=== PATIENT | male | born 1975 | race Caucasian/White ===

== ENCOUNTER → 2019-05-20 15:41 | Outpatient (CLI) | payer OTHER, SELFPAY ==
[2019-05-20 16:36] LABS: Alanine Aminotransferase 129 IU/L (<50); Albumin 4.8 g/dL (3.5-5.0); Albumin Globulin Ratio 1.6 (1.0-2.8); Alkaline Phosphatase 88 U/L (38-126); Aspartate Aminotransferase 80 IU/L (17-59); BUN Creatinine Ratio 21.3 (6-22); Blood Urea Nitrogen 17 mg/dL (9-20); Calcium 9.5 mg/dL (8.4-10.2); Carbon Dioxide 31 mmol/L (22-32); Chloride 101 mmol/L (98-107); Cholesterol 194 mg/dL (140-199); Estimated Glomerular Filt Rate > 60.0 mL/min (>60); Glucose 137 mg/dL (70-100); HDL Cholesterol 45 mg/dL (40-60); HEMOLYSIS 21 (0-50); LDL Cholesterol Calculated 114 mg/dL (<100); Potassium 4.6 mmol/L (3.4-5.1); Sodium 141 mmol/L (137-145); Total Protein 7.8 g/dL (6.3-8.2); Triglycerides 174 mg/dL (35-150)
[2019-05-20 17:00] LABS: Creatinine Urine Random 172.5 mg/dL
[2019-05-20 17:07] LABS: Thyroid Stimulating Hormone 0.65 uIU/mL (0.47-4.68)
[2019-05-20 17:22] LABS: Microalbumi Creatinin Ratio Ur 249.2 ug/mg CR (<30)
== END ==
PROVIDERS: PCP Physician Assistant; Visit Provider Physician Assistant
DX: E66.01 Morbid (severe) obesity due to excess calories (principal); I10 Essential (primary) hypertension
CPT/HCPCS: 36415; 80053; 80061; 82043; 82570; 84443

== ENCOUNTER → 2019-07-29 16:20 | Outpatient (CLI) | payer OTHER, SELFPAY ==
[2019-07-29 17:04] LABS: Alanine Aminotransferase 135 IU/L (<50); Albumin 4.5 g/dL (3.5-5.0); Albumin Globulin Ratio 1.3 (1.0-2.8); Alkaline Phosphatase 72 U/L (38-126); Aspartate Aminotransferase 81 IU/L (17-59); BUN Creatinine Ratio 27.1 (6-22); Bilirubin Total 0.5 mg/dL (0.2-1.3); Blood Urea Nitrogen 19 mg/dL (9-20); Calcium 9.2 mg/dL (8.4-10.2); Carbon Dioxide 28 mmol/L (22-32); Chloride 102 mmol/L (98-107); Estimated Glomerular Filt Rate > 60.0 mL/min (>60); Globulin 3.5 g/dL (1.7-4.1); Glucose 132 mg/dL (70-100); HEMOLYSIS < 15 (0-50); Potassium 3.2 mmol/L (3.4-5.1); Sodium 139 mmol/L (137-145)
[2019-07-29 17:25] LABS: Creatinine Urine Random 192.5 mg/dL
[2019-07-29 17:57] LABS: Microalbumi Creatinin Ratio Ur 172.9 ug/mg CR (<30); Microalbumin Urine Random 33.3 mg/dL (0-1.6)
== END ==
PROVIDERS: PCP Physician Assistant; Visit Provider Physician Assistant
DX: I10 Essential (primary) hypertension (principal); R74.8 Abnormal levels of other serum enzymes; R80.9 Proteinuria, unspecified; R73.01 Impaired fasting glucose
CPT/HCPCS: 36415; 80053; 82043; 82570; 83036

== ENCOUNTER → 2021-02-26 12:10 | Outpatient (CLI) | payer OTHER, SELFPAY ==
[2021-02-26 14:02] LABS: Add Manual Diff / Slide Review NO; Basophils Absolute Auto 100 /uL (0-100); Basophils Percent Auto 1.1 % (0-2); Eosinophils Absolute Auto 200 /uL (0-450); Eosinophils Percent Auto 2.5 % (2-4); Hematocrit 46.4 % (41-53); Hemoglobin 16.4 g/dL (13.5-17.5); Lymphocytes Absolute Auto 1800 /uL (1100-4500); Lymphocytes Percent Auto 23.5 % (25-40); Mean Corpuscular HGB Conc 35.3 % (30-36); Mean Corpuscular Hemoglobin 31.1 PG (26-34); Mean Corpuscular Volume 88.2 fL (80-100); Monocytes Absolute Auto 700 /uL (0-900); Monocytes Percent Auto 9.5 % (3-14); Neutrophils Absolute Auto 5000 /uL (1500-7000); Neutrophils Percent Auto 63.4 % (50-75); Platelet Count 247 X10^3/uL (150-400); Red Blood Cell Count 5.26 X10^6/uL (4.5-5.9); Red Cell Distribution Width 13.2 % (11.6-14.8); White Blood Cell Count 7.8 X10^3/uL (4.5-11.0)
[2021-02-26 14:28] LABS: Alanine Aminotransferase 133 IU/L (<50); Albumin 4.4 g/dL (3.5-5.0); Albumin Globulin Ratio 1.5 (1.0-2.8); Alkaline Phosphatase 85 U/L (38-126); Aspartate Aminotransferase 93 IU/L (17-59); BUN Creatinine Ratio 18.7 (6-22); Bilirubin Total 0.9 mg/dL (0.2-1.3); Blood Urea Nitrogen 14 mg/dL (9-20); Calcium 9.5 mg/dL (8.4-10.2); Carbon Dioxide 29 mmol/L (22-32); Chloride 101 mmol/L (98-107); Cholesterol 183 mg/dL (140-199); Estimated Glomerular Filt Rate > 60.0 mL/min (>60); Glucose 188 mg/dL (70-100); HDL Cholesterol 41 mg/dL (40-60); HEMOLYSIS < 15 (0-50); LDL Cholesterol Calculated 112 mg/dL (<100); Potassium 3.7 mmol/L (3.4-5.1); Sodium 138 mmol/L (137-145); Total Protein 7.4 g/dL (6.3-8.2); Triglycerides 151 mg/dL (35-150); Uric Acid 5.9 mg/dL (3.5-8.5)
[2021-02-26 14:33] LABS: NT-proBNP (BNP-Adult 18+) 193 pg/mL (<125)
== END ==
PROVIDERS: PCP Physician Assistant; Referring Provider Naturopath; Visit Provider Naturopath
DX: M79.675 Pain in left toe(s) (principal); Z13.6 Encounter for screening for cardiovascular disorders
CPT/HCPCS: 36415; 80053; 80061; 83880; 84550; 85025

== ENCOUNTER → 2021-05-30 12:07 | Outpatient (CLI) | payer OTHER, SELFPAY ==
[2021-05-30 16:11] LABS: COVID19 -Nasal RAPID Negative (Negative)
== END ==
PROVIDERS: PCP Family Medicine; Referring Provider Physician Assistant; Visit Provider Physician Assistant
DX: Z01.812 Encounter for preprocedural laboratory examination (principal); Z20.822 Contact with and (suspected) exposure to COVID-19
CPT/HCPCS: 87635

== ENCOUNTER → 2021-05-31 14:46 | Outpatient (CLI) | payer OTHER, SELFPAY ==
--- NOTE | 2021-05-31 14:47 | DI.ECHO.S_ITS ---
[facility] +---------+ : : [address] : : : : [id number] : : : : Phone: [phone]+ Echocardiogram Report + + :Name: ALICE GOULD Study Date: 05/31/2021 Height: 74 in : :[facility] ReadingLocation: Weight: 342 lb : : Gender: Male BSA: 2.7 m2 : :: 1975 Age: 45 yrs BP: 165/110 mmHg: :Reason For Study: HYPERTENSION : :Ordering Physician: SELENA, : :ANIBAL Performed By: Gavi Marquez : :Referring: ANIBAL WALTERS : + + Interpretation Summary The ejection fraction is estimated to be 60-65%. The right ventricle is normal in size and function. A patent foramen ovale is suspected. There is no significant valvular heart disease. Procedure: A two-dimensional transthoracic echocardiogram with color flow and Doppler was performed. The study quality was technically adequate. There is no prior echocardiogram noted for this patient. The patient was in sinus rhythm with heart rates between 59-66 bpm during the exam. Left Ventricle: The left ventricle is normal in size. There is moderate concentric left ventricular hypertrophy. The ejection fraction is estimated to be 60-65%. Left ventricular wall motion is normal. Right Ventricle: The right ventricle is normal in size and function. Atria: The left atrial size is normal. Right atrial size is normal. A patent foramen ovale is suspected. Mitral Valve: The mitral valve is normal in structure and function. There is trace mitral regurgitation. Aortic Valve: The aortic valve is trileaflet. The aortic valve opens well. There is no aortic valve stenosis. No aortic regurgitation is present. Tricuspid Valve: The tricuspid valve is normal in structure and function. There is trace tricuspid regurgitation. Pulmonary artery pressures cannot be estimated because of the lack of a measurable TR jet velocity. Pulmonic Valve: The pulmonic valve is not well visualized. There is no pulmonic valvular regurgitation. Great Vessels: The aortic root is normal size. The ascending aorta is mildly enlarged. The inferior vena cava was not well visualized. Pericardium/ Pleura There is no pericardial effusion. There is no pleural effusion. MMode/2D Measurements & Calculations LVIDd: 4.9 cm LVOT diam: 2.3 cm LVIDs: 3.3 cm Ao root diam: 3.6 cm FS: 33.4 % asc Aorta Diam: 3.9 cm IVSd: 1.6 cm Ao Arch Diam (Prox Trans): 3.3 cm LVPWd: 1.3 cm LV aguilar. diameter/BSA (cm/m^2): 1.8 LV sys. diameter/BSA (cm/m^2): 1.2 LA A2 area: 23.6 cm2 RA long axis: 5.5 cm LA A4 area: 15.9 cm2 RA area: 14.3 cm2 LA length (vol): 5.2 cm RA vol: 31.7 ml LA vol: 61.0 ml RA : 11.6 ml/m2 LA vol index: 22.3 ml/m2 RVD1 (basal): 3.6 cm TAPSE: 1.9 cm Doppler Measurements & Calculations Ao V2 max: 118.2 cm/sec LVOT Max Jamil: 90.8 cm/sec Ao V2 mean: 82.5 cm/sec LV V1 max P.3 mmHg Ao max P.6 mmHg LV V1 VTI: 18.6 cm Ao mean P.0 mmHg SUSANNE(I,D): 3.5 cm2 Ao V2 VTI: 22.0 cm SUSANNE(V,D): 3.2 cm2 sev ratio: 0.85 SUSANNE indexed to BSA (cm^2/m^2): 1.3 MV E max jamil: 54.8 cm/sec PA V2 max: 93.0 cm/sec MV A max jamil: 79.9 cm/sec PA V2 mean: 63.3 cm/sec MV E/A: 0.69 PA mean P.7 mmHg Med Peak E' Jamil: 5.1 cm/sec PA pr(Accel): 22.5 mmHg E/E' med: 10.7 Lat Peak E' Jamil: 6.5 cm/sec E/E' lat: 8.4 E/e' average: 9.6 MV dec time: 0.27 sec SV(LVOT): 77.5 ml Reading Physician:07:38 PM
--- NOTE | 2021-06-02 12:51 | DI.NM.S_ITS ---
DATE OF SERVICE: PROCEDURE: Pharmacological perfusion study. DATE OF STUDY: June 01, 2021. INDICATIONS: Abnormal EKG, hypertension. RADIOPHARMACEUTICAL: 25.8 millicurie technetium-99m Myoview IV was injected at rest and 27.4 millicurie technetium-99m Myoview IV was injected at stress. CARDIAC STRESS: Initially, the patient attempted walking on the treadmill. He walked on Juni protocol for 4 minutes and achieved 7 METs of workload. His baseline blood pressure was 160/105. With exercise, blood pressure went up to 246/120 mmHg, hence it was discontinued. The patient was given intravenous Lexiscan as per protocol. During exercise, functional aerobic impairment positive 59 percent. Baseline rhythm was sinus with QS complexes in V1 to V2. During Lexiscan, there were some nonspecific ST changes with less than [address] depression in inferolateral leads. The patient achieved 93 percent of target heart rate. No chest pain or anginal symptoms. RAW DATA: There is increased subdiaphragmatic activity. The patient's weight is 348 pounds. GATED STUDY: Stress LV ejection fraction 66 percent without any obvious wall motion abnormalities. Resting end-diastolic volume 164 mL. TID ratio 1.02, which is within normal limits. Lung/heart ratio 0.30, which is within normal limits. MYOCARDIAL PERFUSION SCAN: Stress supine and resting supine images revealed moderate-size, moderately decreased perfusion of inferior wall which got completely resolved during prone images suggestive of diaphragmatic tissue attenuation artifact. Prone images revealed normal myocardial perfusion. CONCLUSION: This is a normal myocardial perfusion study with evidence of diaphragmatic tissue attenuation artifact which got resolved during stress prone images. Hypertensive blood pressure response. Baseline blood pressure 160/105. With exercise went up to 246/120 mmHg. No anginal symptoms. Nonspecific EKG changes. No significant arrhythmias. As far as perfusion scan is concerned, this is a low-risk myocardial perfusion scan. Consider aggressive medical management including blood pressure management. Agustin Vasquez - BESS/lolita/carie doc#: [id number]/job#: [id number] dd: 06/01/2021 17:40:00 dt: 06/01/2021 18:25:00 DICTATING MD/COPIES TO: Sangeetha Tirado MD COPIES MNE: GILDARDO;
== END ==
PROVIDERS: PCP Physician Assistant; Referring Provider Family Medicine; Visit Provider Family Medicine
DX: R94.31 Abnormal electrocardiogram [ECG] [EKG] (principal); I77.89 Other specified disorders of arteries and arterioles; I10 Essential (primary) hypertension; I45.9 Conduction disorder, unspecified; E66.01 Morbid (severe) obesity due to excess calories; R73.01 Impaired fasting glucose; Z68.42 Body mass index [BMI] 45.0-49.9, adult
CPT/HCPCS: 78452; 93017; 93306; A9502; J2785

== ENCOUNTER → 2022-08-27 08:28 | Outpatient (CLI) | payer OTHER, SELFPAY ==
[2022-08-27 10:11] LABS: Hemoglobin A1C% w Est Avg Glu 12.6 % (4.0-6.0)
[2022-08-27 10:12] LABS: Add Manual Diff / Slide Review NO; Basophils Absolute Auto 100 /uL (0-100); Basophils Percent Auto 0.8 % (0-2); Eosinophils Absolute Auto 100 /uL (0-450); Eosinophils Percent Auto 2.3 % (2-4); Hematocrit 48.1 % (41-53); Hemoglobin 17.3 g/dL (13.5-17.5); Lymphocytes Absolute Auto 1400 /uL (1100-4500); Lymphocytes Percent Auto 21.4 % (25-40); Mean Corpuscular Hemoglobin 31.6 PG (26-34); Mean Corpuscular Volume 87.7 fL (80-100); Monocytes Absolute Auto 500 /uL (0-900); Monocytes Percent Auto 7.2 % (3-14); Neutrophils Absolute Auto 4500 /uL (1500-7000); Neutrophils Percent Auto 68.3 % (50-75); Platelet Count 221 X10^3/uL (150-400); Red Blood Cell Count 5.49 X10^6/uL (4.5-5.9); White Blood Cell Count 6.6 X10^3/uL (4.5-11.0)
[2022-08-27 10:16] LABS: Alanine Aminotransferase 107 IU/L (<50); Albumin 4.2 g/dL (3.5-5.0); Albumin Globulin Ratio 1.4 (1.0-2.8); Alkaline Phosphatase 92 U/L (38-126); Aspartate Aminotransferase 68 IU/L (17-59); BUN Creatinine Ratio 25.4 (6-22); Blood Urea Nitrogen 17 mg/dL (9-20); Calcium 8.7 mg/dL (8.4-10.2); Carbon Dioxide 28 mmol/L (22-32); Chloride 98 mmol/L (98-107); Cholesterol 210 mg/dL (140-199); Estimated Glomerular Filt Rate > 60 mL/min (>60); Globulin 2.9 g/dL (1.7-4.1); Glucose 355 mg/dL (70-100); HDL Cholesterol 43 mg/dL (40-60); HEMOLYSIS < 15 (0-50); LDL Cholesterol Calculated 113 mg/dL (<100); Potassium 4.2 mmol/L (3.4-5.1); Sodium 136 mmol/L (137-145); Total Protein 7.1 g/dL (6.3-8.2); Triglycerides 268 mg/dL (35-150)
[2022-08-27 10:46] LABS: TSH w/ Reflex to FT4 0.49 uIU/mL (0.47-4.68)
[2022-08-27 11:05] LABS: Creatinine Urine Random 109.6 mg/dL
[2022-08-27 11:29] LABS: Microalbumi Creatinin Ratio Ur 1779.1 ug/mg CR (<30)
== END ==
PROVIDERS: PCP Family Medicine; Referring Provider Family Medicine; Visit Provider Family Medicine
DX: E66.01 Morbid (severe) obesity due to excess calories (principal); G47.33 Obstructive sleep apnea (adult) (pediatric); I10 Essential (primary) hypertension; R73.01 Impaired fasting glucose; R74.8 Abnormal levels of other serum enzymes; Z68.42 Body mass index [BMI] 45.0-49.9, adult
CPT/HCPCS: 36415; 80053; 80061; 82043; 82570; 83036; 84443; 85025

== ENCOUNTER → 2022-10-21 09:51 | Outpatient (CLI) | payer OTHER, SELFPAY ==
[2022-10-21 10:47] LABS: Alanine Aminotransferase 94 IU/L (<50); Albumin 4.6 g/dL (3.5-5.0); Albumin Globulin Ratio 1.2 (1.0-2.8); Alkaline Phosphatase 74 U/L (38-126); Aspartate Aminotransferase 61 IU/L (17-59); BUN Creatinine Ratio 23.9 (6-22); Bilirubin Total 0.9 mg/dL (0.2-1.3); Blood Urea Nitrogen 17 mg/dL (9-20); Calcium 9.3 mg/dL (8.4-10.2); Carbon Dioxide 29 mmol/L (22-32); Chloride 103 mmol/L (98-107); Estimated Glomerular Filt Rate > 60 mL/min (>60); Globulin 3.9 g/dL (1.7-4.1); Glucose 171 mg/dL (70-100); HEMOLYSIS < 15 (0-50); Potassium 3.7 mmol/L (3.4-5.1); Sodium 140 mmol/L (137-145); Total Protein 8.5 g/dL (6.3-8.2)
[2022-10-22 06:08] LABS: x Labcorp Estim. Avg Glu (eAG) 209 mg/dL (.); x Labcorp Hemoglobin A1c 8.9 % (4.8-5.6)
[2022-10-28 18:21] LABS: Aldosterone/Renin Activity Rat 7.3 (0.0-30.0); Plama Renin, LC/MS/MS 0.656 ng/mL/hr (0.167-5.380)
== END ==
PROVIDERS: PCP Family Medicine; Referring Provider Family Medicine; Visit Provider Family Medicine
DX: I10 Essential (primary) hypertension (principal); R80.9 Proteinuria, unspecified
CPT/HCPCS: 36415; 80053; 82088; 83036; 84244

== ENCOUNTER → 2022-11-04 13:41 | Outpatient (CLI) | payer OTHER, SELFPAY ==
--- NOTE | 2022-12-01 14:01 | DIAB.MNT ---
Initial Diabetes Medical Nutrition Therapy Assessment Name: Agustin Vasquez Date: 11/04/22 Time: 210-315p Dx: Type II Diabetes Provider: Lucy Velez presents for initial DM visit. Newly dx with T2Dm with HgA1c of 12.6% in 08/2022 and 8.9% in 10/2022. Endorses FH of DM with maternal grandfather, possibly father. Reports excessive hunger and thirst when diagnosed. Thirst improved. Endorses weight loss since last PCP visit from lifestyle changes. States he has been trying to avoid evening eating. Reports prior to dx he would eat everything Using smaller plate size. Limits self to a couple bites of ice cream. Trying to balance Na for HTN management and DM diet. Reduced energy drink intake to one per day. Milk intake reduced from 1/2 gallon per day to 1 qt. 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 Wants to start walking with son and dog. Self-Monitoring Blood Glucose: Checking FBG and pre dinner, range from 160-180mg/dl per report. No meter/log book today. Diabetes Medications: 25mg Jardiance 1000mg Metformin BID Ozempic rx (not taking yet) Pertinent Labs: hgA1c: 8.9% (10/2022) 12.6% (08/2022) Past Medical History: (Last Updated 10/21/22 @ 09:27 by Jose Luis Ayala MD) Diabetes mellitus Elevated liver enzymes Impaired fasting glucose Microalbuminuria PFO (patent foramen ovale) Resistant hypertension Uncontrolled diabetes mellitus Nutrition Rx: Carbohydrates: Meal: 45-60g snack: 15-30g Nutrition Diagnosis: - Predicted excessive CHO intake r/t nutrition knowledge deficit aeb new dx, pt report, and diet recall - Physical inactivity r/t stage of change preparation aeb pt report Intervention: This participant was very receptive. Provided appropriate educational handouts. Discussed the following topics: Completed intake assessment. Discussed barriers to care. Brief pathophysiology of T2DM HgA1c, its correlation to blood glucose numbers, and rationale for goal Importance of self-monitoring, how often, and when to check. Suggested checking at different times to evaluate meals Plate Method, impact of macronutrients on blood sugar, meal timing, carbohydrate counting, pairing macronutrients and spreading out carbohydrates for better blood glucose management Recommended servings for carbohydrates at meals and snacks Heart health nutrition Brainstormed appropriate meal plan based on food preferences Role of physical activity and following provider guidelines for safety Created SMART goals for patient self-care and success. Goals: Start walks 2-3 x per week Check BG 1-2 x per day and keep log book Spread CHO intake out as discussed Follow-up: CHARLENE TAVERA follow-up in 4-6 weeks Lesly Nicolas RDN, LIANG Certified Diabetes Care and [employer] Secretary P: [phone] Thank you for this referral
== END ==
PROVIDERS: Absent Provider Family Medicine; Family Provider Family Medicine; PCP Family Medicine; Referring Provider Family Medicine; Visit Provider Family Medicine
DX: E11.9 Type 2 diabetes mellitus without complications (principal); I10 Essential (primary) hypertension; Z79.84 Long term (current) use of oral hypoglycemic drugs; Z71.3 Dietary counseling and surveillance
CPT/HCPCS: 97802

== ENCOUNTER 2022-12-30 06:48 | Day surgery (SDC) | payer OTHER, SELFPAY ==
[2022-12-30] VITALS (7 sets, daily range): BP systolic 93–147; BP diastolic 50–92; PULSE 75–88; RESP 12–20; TEMP 36.1–36.7; O2SAT 91–96; BMI 40.1
--- NOTE | 2022-12-30 | PATH_ITS ---
[facility] Accession Number: [id number] No. of containers..05 Tissue . 01 Material submitted: . PART A: cecum - CECAL POLYP (LARGE) PART B: cecum - CECAL POLYP (SMALL) PART C: colon - TRANSVERSE POLYP (LARGE) PART D: splenic flexure - SPLENIC FLEXURE PART E: colon - DESCENDING POLYP . 01 Diagnosis: A. Cecal Polyp: Sessile serrated adenoma. . B. Cecal Polyp: Colonic mucosa with no diagnostic abnormality, consistent with polypoid redundancy. Negative for serrated lesion, dysplasia or malignancy. . C. Transverse Colon Polyp: Sessile serrated adenoma. . D. Splenic Flexure Polyp: Tubular adenoma. . E. Descending Colon Polyp: Hyperplastic polyp. [facility] 01/05/2023 1259 Local . 01 Electronically signed: . Ian Leonard MD, PhD, Pathologist NPI- [id number] . 01 Gross description: . Part A: CECAL POLYP (LARGE): Received in formalin are 3 fragment(s) of robison, soft tissue measuring 0.6 x 0.5 x 0.2 cm to 0.8 x 0.3 x 0.3 cm submitted entirely in 1 cassette(s) Part B: CECAL POLYP (SMALL): Received in formalin is 1 fragment(s) of robison, soft tissue measuring 0.3 x 0.3 x 0.3 cm submitted entirely in 1 cassette(s) Part C: TRANSVERSE POLYP (LARGE): Received in formalin are 2 fragment(s) of robison, soft tissue measuring 0.6 x 0.4 x 0.3 cm to 0.8 x 0.7 x 0.6 cm submitted entirely in 1 cassette(s) Part D: SPLENIC FLEXURE: Received in formalin is 1 fragment(s) of robison, soft tissue measuring 0.3 x 0.3 x 0.3 cm submitted entirely in 1 cassette(s) Part E: DESCENDING POLYP: Received in formalin is 1 fragment(s) of robison, soft tissue measuring 0.3 x 0.2 x 0.2 cm submitted entirely in 1 cassette(s) /EULALIA 01/03/2023 2315 Local . 01 Pathologist provided ICD-10: D12.0, D12.3 . 01 CPT . 162865, 069427, 404219, 631720, 253570 Specimen Comment: A courtesy copy of this report has been sent to [facility] Pathology Performed at: 01 [facility] [address] [facility], [place], [place] [id number] MD Gutierrez Mcgill MD Phone: [phone]
[2022-12-30] MEDS: LACTATED RINGERS 1,000 ML 100 ML IV (07:19)
--- NOTE | 2022-12-30 07:43 | PM.HP.1 ---
History of Present Illness History of Present Illness Date Patient Seen: 12/30/22 Time Patient Seen: 07:43 Chief complaint: Colonoscopy Narrative: 47-year-old male presents today for his 1st screening colonoscopy. He has no family history of colon cancer. He has not noticed any concerning symptoms such as bleeding or changes in bowel habits. [facility] Medical History (Updated 10/21/22 @ 15:00 by Jose Luis Ayala MD) Diabetes mellitus Elevated liver enzymes Impaired fasting glucose Microalbuminuria PFO (patent foramen ovale) Resistant hypertension Uncontrolled diabetes mellitus Surgical History (Updated 06/24/19 @ 20:54 by Pam Monroy) Anesthesia History of vasectomy Family History (Updated 06/24/19 @ 20:56 by Pam Monroy) Grandmother Cancer Grandfather History of heart disease Hypertension Stroke Social History household members: spouse and family Smoking Status: Never smoker second hand exposure: Yes (my mom smoked when I was a child. ) alcohol intake: never substance use type: does not use Meds Home Medications and Allergies Home Medications Medication Instructions Recorded Confirmed Type metoprolol succinate 50 mg 50 mg PO DAILY #90 tabs 08/26/22 12/30/22 Rx tablet,extended release 24 hr empagliflozin 25 mg tablet 25 mg PO DAILY #90 tabs 08/29/22 12/30/22 Rx (Jardiance) blood-glucose meter #1 ea 09/01/22 10/21/22 Rx lancet with blood glucose test #300 ea 09/01/22 10/21/22 Rx strips and pen needles combo pack amlodipine 10 mg tablet 10 mg PO DAILY #90 tabs 10/21/22 10/21/22 Rx atorvastatin 40 mg tablet (Lipitor) 40 mg PO QPM #90 tabs 10/21/22 12/30/22 Rx chlorthalidone 25 mg tablet 25 mg PO DAILY #90 tabs 10/21/22 12/30/22 Rx lisinopril 40 mg tablet 40 mg PO DAILY #90 tabs 10/21/22 12/30/22 Rx metformin 1,000 mg tablet See Rx Instructions PO BIDWMEAL 10/21/22 12/30/22 Rx #180 tabs semaglutide 0.25 mg or 0.5 mg (2 0.25 mg (0.4 mL) SUBCUT QWEEK #3 mL 10/21/22 12/30/22 Rx mg/3 mL) subcutaneous pen injector (Ozempic) Allergies Allergy/AdvReac Type Severity Reaction Status Date / Time No Known Drug Allergies Allergy Verified 08/30/22 14:29 Exam Vital Signs (past 8 hours): - 12/30/22 07:06 Temperature 98.1 F Pulse Rate 80 Respiratory Rate 18 Blood Pressure 147/92 H Pulse Oximetry 95 Const General: cooperative, healthy appearing and comfortable Nutritional Appearance: obese (bmi 40) Orientation: alert, awake and oriented x3 HENMT Head: normal to inspection Eyes General: appearance normal, both eyes and all related structures Resp Effort & Inspection: normal respiratory effort and able to speak in complete sentences Cardio Pulses: radial pulses present GI Palpation: soft and No tender Assessment & Plan Assessment & Plan narrative: Presents today for screening colonoscopy I discussed the risks benefits and alternatives including but not limited to perforation of the colon and an incomplete exam he fully understands these risks and would like to proceed.
--- NOTE | 2022-12-30 09:49 | P.OP.COLON_ITS ---
Operative Date/Time/Diagnoses Date of procedure: 12/30/22 Pre-op diagnosis: Screening for colon cancer, 1st screening no family history Post-op diagnosis: same Procedure & Clinicians Study performed: Colonoscopy and biopsy Same procedure as scheduled: Yes Indications: Screening for colon cancer this is his 1st screening he has no family history of colon cancer and no concerning symptoms. Surgeon: Jenelle Ramirez Procedure Notes Procedure in detail: Patient was taken to the endoscopy suite and placed in the left lateral decubitus position. A time-out was performed. With the help of anesthesiologist conscious sedation was induced and maintained for the duration of the procedure. A digital rectal exam was performed and there were no masses or strictures. The scope was then advanced into the anal canal and through to the cecum. Some abdominal pressure was required. Photograph of the appendiceal orifice was obtained. The bowel prep was good [place] bowel prep score of 2. There was a very small cecal polyp seen by the appendiceal orifice which was rem geo with the biopsy forceps. There was a larger cecal polyp that required a snare to remove. It might have been 9 mm to 1 cm in size. Further withdrawal revealed a very large polyp in the transverse colon. This was a sessile polyp and was on the far side of a colon fold, it also was right beyond the splenic flexure making positioning the colonoscope for the purpose of removing it somewhat difficult. I had to switch out the snare to the larger size which was a 2.5 cm sized snare and had to remove the polyp in 2 bites in order to fit it through the suctioned of the colonoscope. I believe this polyp was at least 2 cm in size, but removed in its entirety. I did use electrocautery on the snare to remove the 2 halves of that polyp. Further withdrawal revealed a small polyp at the splenic flexure which was removed with biopsy forceps as well as a small polyp in the descending colon again removed with 2 bites of a forceps. The scope was then retroflexed and hemorrhoidal piles appeared normal. Of note in addition there were a large number of sigmoid diverticula that were seen and photographed during the colonoscopy. Patient tolerated the procedure well and went in good condition to the postoperative care unit. Total withdrawal time including biopsies was 40 minutes. Findings: divertiulosis and polyp(s) Specimen(s): other (1. Cecal polyp(large) 2. Cecal polyps(small) 3. Transverse polyp very large 4. Splenic flexure polyp small 5. Descending colon polyp small) Complications: none Post-procedure Recommendations: Colonoscopy in 3 years
== END 2022-12-30 09:25 | disposition home or self-care (01) ==
PROVIDERS: Family Provider Family Medicine; PCP Family Medicine; Referring Provider Surgery; Visit Provider Surgery
PROC: 0DJD8ZZ Inspection of Lower Intestinal Tract, Via Natural or Artificial Opening Endoscopic (ICD-10-PCS; CPT 45378; principal; 2022-12-30 07:45)
DX: Z12.11 Encounter for screening for malignant neoplasm of colon (principal); K57.30 Diverticulosis of large intestine without perforation or abscess without bleeding; D12.0 Benign neoplasm of cecum; D12.3 Benign neoplasm of transverse colon; D12.4 Benign neoplasm of descending colon
CPT/HCPCS: 45385; 45380; 82962; J2704

== ENCOUNTER → 2023-02-01 08:36 | Outpatient (CLI) | payer OTHER, SELFPAY ==
[2023-02-01 10:44] LABS: Creatinine Urine Random 90.2 mg/dL
[2023-02-01 10:47] LABS: Microalbumi Creatinin Ratio Ur 127.4 ug/mg CR (<30); Microalbumin Urine Random 11.5 mg/dL (0-1.6)
[2023-02-02 07:43] LABS: x Labcorp Estim. Avg Glu (eAG) 163 mg/dL (.); x Labcorp Hemoglobin A1c 7.3 % (4.8-5.6)
== END ==
PROVIDERS: Family Provider Family Medicine; PCP Family Medicine; Referring Provider Family Medicine; Visit Provider Family Medicine
DX: I10 Essential (primary) hypertension (principal); R80.9 Proteinuria, unspecified
CPT/HCPCS: 36415; 82043; 82570; 83036

== ENCOUNTER 2024-03-22 18:42 | Emergency (ER) | payer OTHER, SELFPAY ==
[2024-03-22 18:54] VITALS: BP 154/87; PULSE 85; RESP 16; TEMP 36.6; O2SAT 97; BMI 41.3
--- NOTE | 2024-03-22 18:58 | DI.RAD.S_ITS ---
PROCEDURE: XR SHOULDER RT MIN 2V INDICATIONS: fall, heard a pop, thinks tore bicep TECHNIQUE: 3 views of the shoulder were acquired. COMPARISON: None. FINDINGS: Bones: Mild background degenerative changes. No acute displaced fracture. Small bone fragment seen superior to the humerus. Soft tissues: Possible calcific tendinopathy. IMPRESSION: Small densities seen superior to the humerus probably represents calcific tendinopathy. No definite acute displaced fracture or dislocation. If there is high concern for further derangement, consider MRI evaluation. Dictated by: Jack Luna M.D. on 03/22/2024 at 19:42 Approved by: Jack Luna M.D. on 03/22/2024 at 19:43
--- NOTE | 2024-03-22 23:04 | ED_ITS ---
HPI - Extremity Injury (Upper) General Chief Complaint: Extremity Injury, Upper Stated Complaint: rt should and bicep injury Time Seen by Provider: 03/22/24 23:03 Source: patient, RN notes reviewed and old records reviewed Mode of arrival: Ambulatory Limitations: no limitations History of Present Illness HPI narrative: 48-year-old male history of hypertension dyslipidemia, diabetes who is presents with concern for right shoulder and possible biceps tendon injury. Patient was at work today fell backwards leaning with his arm outstretched onto his hand but then shoulder was rolled forward and externally rotated and patient felt pop at the top of the shoulder states that the muscle of the biceps looks larger at the base of his arm. Patient states had a similar injury on the opposite side in the left many years ago feels very similar. He states he is little bit weaker with flexion of the arm. Denies any other injuries. States there is a little bit of discomfort in the trapezius and behind the shoulder. Patient denies any numbness tingling or weakness otherwise. States he never has a left shoulder evaluated. Patient states this did occur at work. He has filled out L and I paperwork. Denies any drug allergies. No tobacco. Related Data Previous Rx's Medication Instructions Recorded blood-glucose meter #1 ea 09/01/22 lancet with blood glucose test #300 ea 09/01/22 strips and pen needles combo pack psyllium husk (aspartame) 3.4 5.8 g PO BID #660 grams 12/30/22 gram/5.8 gram oral powder (Fiber (with aspartame)) amlodipine 10 mg tablet 10 mg PO DAILY #90 tabs 01/26/24 atorvastatin 40 mg tablet (Lipitor) 40 mg PO QPM #90 tabs 01/26/24 chlorthalidone 50 mg tablet 50 mg PO DAILY #90 tabs 01/26/24 empagliflozin 25 mg tablet 25 mg PO DAILY #90 tabs 01/26/24 (Jardiance) lisinopril 40 mg tablet 40 mg PO DAILY #90 tabs 01/26/24 metformin 1,000 mg tablet See Rx Instructions PO BIDWMEAL 01/26/24 #180 tabs metoprolol succinate 50 mg 50 mg PO DAILY #90 tabs 01/26/24 tablet,extended release 24 hr Allergies Allergy/AdvReac Type Severity Reaction Status Date / Time No Known Drug Allergies Allergy Verified 01/26/24 08:25 Review of Systems Review of Systems ROS Unobtainable: All systems reviewed & are unremarkable except as noted in HPI and below Patient History Medical History Resistant hypertension Microalbuminuria Diabetes mellitus Uncontrolled diabetes mellitus PFO (patent foramen ovale) Elevated liver enzymes Impaired fasting glucose Surgical History Anesthesia History of vasectomy Family History Grandmother Cancer Grandfather History of heart disease Hypertension Stroke Social History household members: spouse and family Smoking Status: Never smoker second hand exposure: Yes (my mom smoked when I was a child. ) alcohol intake: never substance use type: does not use Smoking Status: Never smoker Exam Narrative Exam Narrative: GENERAL: Alert and oriented x three, male in mild distress HEENT: Head normocephalic, atraumatic, EOMI, pupils reactive, face symmetric, moist mucous membranes NECK: Supple, full range of motion CARDIOVASCULAR: Regular rate and rhythm without murmurs, rubs or gallops. RESPIRATORY: Breath sounds equal bilaterally, no wheezes rales or rhonchi. EXTREMITIES: Normal range of motion, no clubbing or edema. Neurovascularly intact, patient has tenderness over the biceps tendon groove. 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 He has some mild tenderness at the AC joint but majority has a discomfort that the biceps tendon groove. 2+ radial pulses bilaterally power system electrical engineer are equal bilaterally. NEUROLOGICAL: Cranial nerves II through XII grossly intact. Moving all extremities SKIN: Warm, dry, no petechiae, no rashes or lesions. Initial Vital Signs Initial Vital Signs: Vital Signs Temperature 97.8 F 03/22/24 18:54 Pulse Rate 85 03/22/24 18:54 Respiratory Rate 16 03/22/24 18:54 Blood Pressure 154/87 H 03/22/24 18:54 Pulse Oximetry 97 03/22/24 18:54 Oxygen Delivery Method Room Air 03/22/24 18:54 Course Orders Ordered: ED Orders 03/22/24 18:58 XR shoulder RT min 2V Stat Vital Signs Vital signs: Vital Signs - 8 hr 03/22/24 18:54 Temperature 97.8 F Pulse Rate 85 Respiratory Rate 16 Blood Pressure 154/87 H Pulse Oximetry 97 Oxygen Delivery Method Room Air MDM - Extremity Injury (Upper) Imaging Data Extremity x-ray #1: Radiologist's Impression: [address] [address] XRay Report Signed Patient: Agustin Vasquez MR#: [id number] : 1975 Acct:[id number] Age/Sex: 48 / M Date of Service: 03/22/24 Loc: ED Accession Number: [id number] Procedure: XR shoulder RT min 2V Ordering Provider: Rut Pradhan D.O. PROCEDURE: XR SHOULDER RT MIN 2V INDICATIONS: fall, heard a pop, thinks tore bicep TECHNIQUE: 3 views of the shoulder were acquired. COMPARISON: None. FINDINGS: Bones: Mild background degenerative changes. No acute displaced fracture. Small bone fragment seen superior to the humerus. Soft tissues: Possible calcific tendinopathy. IMPRESSION: Small densities seen superior to the humerus probably represents calcific tendinopathy. No definite acute displaced fracture or dislocation. If there is high concern for further derangement, consider MRI evaluation. Dictated by: Jack Luna M.D. on 03/22/2024 at 19:42 Approved by: Jack Luna M.D. on 03/22/2024 at 19:43 [facility] Narrative Medical decision making narrative: 48-year-old male with hyperextension injury of the shoulder with the external rotation, patient has tenderness over the biceps tendon does have some physical changes that seem consistent with possible tend tendon injury proximally. Patient does have full range of motion, no weakness left compared to right but notes that he had an injury that was similar on his opposite arm in the past. Plan for sling as needed decreased activity with the upper extremity L and I paperwork was for followed out and follow up with Orthopedic surgery. Discharge Plan Departure Patient Disposition: Home Clinical Impression: Injury of tendon of biceps Activity Restrictions/Additional Instructions: Suspect he did have an injury to your biceps tendons, please call to follow up with Orthopedic surgery. Contact the office 1st thing Monday morning. Contacts included below. You can continue with normal range of motion but no lifting or resistance with curls at the elbow or forced extension of the elbow. Can take ibuprofen up to 600 mg every 6 hours and/or Tylenol up to a 1000 mg every 6 hours as needed for pain. A sling is provided but you can use your normal range of motion. Please return for new or worsening symptoms or other concerning changes. Prescriptions: No Action (DME) lancet-gluc test strip-needles Combo Pack See Rx Instructions .Route Qty: 300 0RF Rx Instructions: use to check bood glucose daily (DME) blood-glucose meter Misc See Rx Instructions .Route Qty: 1 0RF Rx Instructions: use monitor to check blood glucose daily amlodipine 10 mg tablet 10 mg PO DAILY Qty: 90 3RF atorvastatin [Lipitor] 40 mg tablet 40 mg PO QPM Qty: 90 3RF chlorthalidone 50 mg tablet 50 mg PO DAILY Qty: 90 3RF Jardiance 25 mg tablet 25 mg PO DAILY Qty: 90 3RF lisinopril 40 mg tablet 40 mg PO DAILY Qty: 90 3RF metformin 1,000 mg tablet See Rx Instructions PO BIDWMEAL Qty: 180 3RF Rx Instructions: Take 1 tabd orally 2 times per day with meals; metoprolol succinate 50 mg tablet extended release 24 hr 50 mg PO DAILY Qty: 90 3RF Fiber (with aspartame) 3.4 gram/5.8 gram powder 5.8 g PO BID Qty: 660 0RF Rx Instructions: Take 1 tbsp with a large glass of water twice daily before meals. This medication is available [id number] and in many different formulations. Anything that says ?fiber? is fine to take. I do recommend powder over pills because they deliver a larger dose and forceps to take the water needed to activate fiber. They are also less expensive than pills or gummies. Referrals: Jose Luis Ayala MD [Primary Care Provider] - Lata Tolentino MD [Physician] - Stand Alone Forms: Patient Portal/API
== END 2024-03-22 23:51 | disposition home or self-care (01) ==
PROVIDERS: Emergency Provider Emergency Medicine; Family Provider Family Medicine; PCP Family Medicine
DX: S46.201A Unspecified injury of muscle, fascia and tendon of other parts of biceps, right arm, initial encounter (principal); W18.30XA Fall on same level, unspecified, initial encounter; Z79.899 Other long term (current) drug therapy
CPT/HCPCS: 73030; 99281; 99283

== ENCOUNTER → 2024-04-25 13:48 | Outpatient (CLI) | payer OTHER, SELFPAY ==
[2024-04-25 14:40] LABS: Add Manual Diff / Slide Review NO; Basophils Absolute Auto 100 /uL (0-100); Basophils Percent Auto 0.8 % (0-2); Eosinophils Absolute Auto 200 /uL (0-450); Eosinophils Percent Auto 2.2 % (2-4); Hematocrit 46.2 % (41-53); Hemoglobin 16.6 g/dL (13.5-17.5); Lymphocytes Absolute Auto 2500 /uL (1100-4500); Lymphocytes Percent Auto 25.4 % (25-40); Mean Corpuscular Hemoglobin 32.3 PG (26-34); Mean Corpuscular Volume 89.7 fL (80-100); Monocytes Absolute Auto 700 /uL (0-900); Monocytes Percent Auto 7.6 % (3-14); Neutrophils Absolute Auto 6200 /uL (1500-7000); Platelet Count 276 X10^3/uL (150-400); Red Blood Cell Count 5.15 X10^6/uL (4.5-5.9); Red Cell Distribution Width 13.2 % (11.6-14.8); White Blood Cell Count 9.7 X10^3/uL (4.5-11.0)
[2024-04-25 14:41] LABS: Hemoglobin A1C% w Est Avg Glu 11.3 % (4.0-6.0)
[2024-04-25 14:47] LABS: Alanine Aminotransferase 66 IU/L (<50); Albumin 4.5 g/dL (3.5-5.0); Albumin Globulin Ratio 1.7 (1.0-2.8); Alkaline Phosphatase 70 U/L (38-126); Aspartate Aminotransferase 41 IU/L (17-59); BUN Creatinine Ratio 30.3 (6-22); Bilirubin Total 0.6 mg/dL (0.2-1.3); Blood Urea Nitrogen 30 mg/dL (9-20); Calcium 9.7 mg/dL (8.4-10.2); Carbon Dioxide 33 mmol/L (22-32); Chloride 95 mmol/L (98-107); Cholesterol 166 mg/dL (140-199); Estimated Glomerular Filt Rate > 60 mL/min (>60); Globulin 2.7 g/dL (1.7-4.1); Glucose 325 mg/dL (70-100); HDL Cholesterol 35 mg/dL (40-60); HEMOLYSIS < 15 (0-50); Potassium 3.5 mmol/L (3.4-5.1); Sodium 138 mmol/L (137-145); Total Protein 7.2 g/dL (6.3-8.2); Triglycerides 499 mg/dL (35-150)
[2024-04-25 15:03] LABS: Creatinine Urine Random 38.16 mg/dL
[2024-04-25 15:17] LABS: TSH w/ Reflex to FT4 0.46 uIU/mL (0.47-4.68)
[2024-04-25 15:44] LABS: Free T4, Direct Thyroxine 1.14 ng/dL (0.78-2.19)
[2024-04-25 15:53] LABS: Hep C Virus Ab w/Reflex Quant NEGATIVE s/c (NEGATIVE)
== END ==
PROVIDERS: Family Provider Family Medicine; PCP Family Medicine; Referring Provider Family Medicine; Visit Provider Family Medicine
DX: R80.9 Proteinuria, unspecified (principal); E11.9 Type 2 diabetes mellitus without complications; I10 Essential (primary) hypertension; E66.01 Morbid (severe) obesity due to excess calories; Z68.42 Body mass index [BMI] 45.0-49.9, adult; R74.8 Abnormal levels of other serum enzymes
CPT/HCPCS: 36415; 80053; 80061; 82043; 82570; 83036; 84439; 84443; 85025; 86803

== ENCOUNTER → 2025-05-13 06:39 | Outpatient (CLI) | payer OTHER, SELFPAY ==
[2025-05-13 07:57] LABS: Add Manual Diff / Slide Review NO; Hematocrit 47.2 % (41-53); Hemoglobin 17.0 g/dL (13.5-17.5); Lymphocytes Absolute Auto 1800 /uL (1100-4500); Mean Corpuscular HGB Conc 36.1 % (30-36); Mean Corpuscular Hemoglobin 31.4 PG (26-34); Mean Corpuscular Volume 86.9 fL (80-100); Platelet Count 245 X10^3/uL (150-400)
[2025-05-13 08:10] LABS: Anisocytosis 1+
[2025-05-13 08:54] LABS: Alanine Aminotransferase 74 IU/L (<50); Albumin 4.4 g/dL (3.5-5.0); Albumin Globulin Ratio 1.6 (1.0-2.8); Alkaline Phosphatase 102 U/L (38-126); Blood Urea Nitrogen 19 mg/dL (9-20); Calcium 9.2 mg/dL (8.4-10.2); Carbon Dioxide 27 mmol/L (22-32); Chloride 99 mmol/L (98-107); Cholesterol 127 mg/dL (140-199); Estimated Glomerular Filt Rate > 60 mL/min (>60); Globulin 2.8 g/dL (1.7-4.1); Glucose 347 mg/dL (70-99); HDL Cholesterol 43 mg/dL (40-60); HEMOLYSIS < 15 (0-50); Potassium 4.5 mmol/L (3.4-5.1); Sodium 136 mmol/L (137-145); Total Protein 7.2 g/dL (6.3-8.2); Triglycerides 253 mg/dL (35-150)
[2025-05-13 09:09] LABS: TSH w/ Reflex to FT4 1.22 uIU/mL (0.47-4.68)
[2025-05-13 09:17] LABS: Hemoglobin A1C% w Est Avg Glu 11.1 % (4.0-6.0)
[2025-05-13 11:10] LABS: Microalbumi Creatinin Ratio Ur 274.0 ug/mg CR (<30)
== END ==
PROVIDERS: Family Provider Family Medicine; PCP Family Medicine; Referring Provider Family Medicine; Visit Provider Family Medicine
DX: E11.29 Type 2 diabetes mellitus with other diabetic kidney complication (principal); R80.9 Proteinuria, unspecified; E66.01 Morbid (severe) obesity due to excess calories; Z68.42 Body mass index [BMI] 45.0-49.9, adult; I10 Essential (primary) hypertension; R74.8 Abnormal levels of other serum enzymes; Z12.5 Encounter for screening for malignant neoplasm of prostate
CPT/HCPCS: 36415; 80053; 80061; 82043; 82570; 83036; 84443; 85025; G0103